=== PATIENT | male | born 1980 | race Caucasian/White ===

== ENCOUNTER 2017-01-14 10:55 | Emergency (ER) | payer SELFPAY | END 2017-01-14 15:56 | disposition home or self-care (01) | LOC: FER 10:55 | DX: S01.81XA Laceration without foreign body of other part of head, initial encounter (principal); V49.9XXA Car occupant (driver) (passenger) injured in unspecified traffic accident, initial encounter; S80.11XA Contusion of right lower leg, initial encounter; S50.01XA Contusion of right elbow, initial encounter; Z23 Encounter for immunization; G56.02 Carpal tunnel syndrome, left upper limb | CPT/HCPCS: 70450; 72125; 73080; 73590; 90471; 90715; J1170 ==

== ENCOUNTER 2017-01-16 09:08 | Emergency (ER) | payer OTHER | END 2017-01-16 12:19 | disposition home or self-care (01) | LOC: FER 09:08 | DX: G44.309 Post-traumatic headache, unspecified, not intractable (principal); S01.91XA Laceration without foreign body of unspecified part of head, initial encounter; K21.9 Gastro-esophageal reflux disease without esophagitis; Z79.899 Other long term (current) drug therapy; F17.200 Nicotine dependence, unspecified, uncomplicated; W22.09XA Striking against other stationary object, initial encounter; Y92.009 Unspecified place in unspecified non-institutional (private) residence as the place of occurrence of the external cause | CPT/HCPCS: 70450; J2175 ==